=== PATIENT | female | born 1990 | race Caucasian/White ===

== ENCOUNTER → 2018-02-13 | Outpatient (CLI) | payer MEDICAID | LOC: FIMAGING 11:43 | PROVIDERS: ATTEND Family Medicine | DX: R10.2 Pelvic and perineal pain (principal); Z97.5 Presence of (intrauterine) contraceptive device ==

== ENCOUNTER → 2018-04-09 | Outpatient (CLI) | payer MEDICAID ==
[~2018-04-09] MED LIST: GADOBUTROL 10 ML VIAL IVP ONE
== END ==
LOC: FIMAGING 07:09
PROVIDERS: ATTEND Psychiatry & Neurology Neurology
DX: R56.9 Unspecified convulsions (principal); R55 Syncope and collapse; R40.20 Unspecified coma; R94.02 Abnormal brain scan
CPT/HCPCS: A9585

== ENCOUNTER → 2018-04-20 | Outpatient (CLI) | payer MEDICAID ==
--- NOTE | 2018-04-20 16:16 | CPEEG ---
[f rep st] ELECTROENCEPHALOGRAM 4-HOUR VIDEO EEG. DATE OF STUDY: 04/20/2018 DATE OF STUDY: 04/20. INTERPRETATION: This 4-hour video EEG recording is normal. There were no potentially epileptogenic abnormalities present during the awake or sleep recordings. During the video EEG monitoring session, the patient did not have any clinical events. REPORT: This 4-hour video EEG contains 10 Hz alpha activity to the posterior head regions. There wa s no abnormal activation at rest, during photic stimulation or hyperventilation. The patient became drowsy and fell into sustained sleep during the study. There was no abnormal activation during drows iness, sleep, or during times of arousal. There were no clinical events recorded during the video EE G monitoring session. Only sales representative graphic art samples of wakefulness, sleep, and clinical events were reviewed with the study. /[id number]
== END ==
LOC: FCPNEURO 08:03
PROVIDERS: ATTEND Psychiatry & Neurology Neurology
DX: R55 Syncope and collapse (principal)

== ENCOUNTER → 2018-06-26 | Outpatient (CLI) | payer MEDICAID | LOC: FIMAGING 09:11 | PROVIDERS: ATTEND Family Medicine | DX: N60.01 Solitary cyst of right breast (principal) ==